=== PATIENT | male | born 1975 | race Caucasian/White ===

== ENCOUNTER 2016-12-19 09:41 | Outpatient (CLI) | payer OTHER | END 2016-12-19 09:42 | disposition home or self-care (01) | DX: R50.9 Fever, unspecified (principal); N52.9 Male erectile dysfunction, unspecified ==

== ENCOUNTER 2017-02-01 07:36 | Outpatient (CLI) | payer OTHER | END 2017-02-01 23:59 | DX: E29.1 Testicular hypofunction (principal) ==